=== PATIENT | male | born 1950 | race Caucasian/White ===

== ENCOUNTER 2022-10-06 17:07 | Observation (INO) | payer MEDICARE, OTHER ==
[2022-10-06] MEDS ORDERED: Ondansetron 4 MG Tab.DIS PO ONE (17:29)
[2022-10-06] MEDS ORDERED: HYDROmorphone 2 MG/ML Syringe IM ONE (17:29)
[2022-10-06 17:49] LABS: BASOPHILS ABSOLUTE AUTO 0.01 K/uL (0.02-0.10); BASOPHILS PERCENT AUTO 0.1 % (0.0-0.5); EOSINOPHILS ABSOLUTE AUTO 0.16 K/uL (0.04-0.40); EOSINOPHILS PERCENT AUTO 0.9 % (1.0-5.0); HEMOGLOBIN 17.2 g/dL (13.0-18.0); LYMPHOCYTES ABSOLUTE AUTO 2.74 K/uL (1.50-4.00); LYMPHOCYTES PERCENT AUTO 15.1 % (20.0-40.0); MEAN CORPUSCULAR HEMOGLOBIN 30.9 pg (27.0-32.0); MEAN CORPUSCULAR HGB CONC 35.1 g/dL (31.0-35.0); MEAN CORPUSCULAR VOLUME 88 fL (76-96); MEAN PLATELET VOLUME 10.4 fL (6.0-10.0); MONOCYTES ABSOLUTE AUTO 1.72 K/uL (0.20-0.80); MONOCYTES PERCENT AUTO 9.5 % (3.0-10.0); NEUTROPHILS ABSOLUTE AUTO 13.51 K/uL (2.00-7.50); NEUTROPHILS PERCENT AUTO 74.4 % (45.0-70.0); PLATELET COUNT,PLT 149 K/uL (150-400); RED BLOOD CELL COUNT 5.57 M/uL (4.50-6.50); RED CELL DISTRIBUTION WIDTH 14.7 % (11.0-16.0); WHITE BLOOD CELL COUNT,WBC 18.1 K/uL (4.0-11.0)
[2022-10-06 17:53] LABS: APPEARANCE,URINE CLEAR (CLEAR); BILIRUBIN,URINE NEGATIVE (NEGATIVE); COLOR,URINE YELLOW; GLUCOSE,URINE 250 mg/dL (NEGATIVE); KETONES,URINE NEGATIVE (NEGATIVE); LEUKOCYTE ESTERASE,URINE NEGATIVE (NEGATIVE); NITRITE,URINE NEGATIVE (NEGATIVE); OCCULT BLOOD,URINE NEGATIVE (NEGATIVE); PROTEIN,URINE 30 mg/dL (NEGATIVE)
[2022-10-06 18:01] LABS: AMORPHOUS SEDIMENT,URINE OCCASIONAL /HPF; RBC,URINE NOT SEEN /HPF; WBC,URINE NOT SEEN /HPF
[2022-10-06 18:06] LABS: ALBUMIN 3.7 g/dL (3.4-5.0); ANION GAP 16.5 mmol/L (5.0-15.0); BILIRUBIN TOTAL 1.8 mg/dL (0.0-1.0); BUN/CREATININE RATIO 14.2 (6-25); CALCIUM 8.8 mg/dL (8.5-10.1); CARBON DIOXIDE,CO2 24.5 mmol/L (21.0-32.0); CREATININE 1.34 mg/dL (0.70-1.30); EST CRCL DRUG DOSING (CG) 51.51 mL/min; PROTEIN TOTAL,TP 7.4 g/dL (6.4-8.2)
[2022-10-06] MEDS ORDERED: Ketorolac 30 MG/ML SDV IVPUSH ONE (18:17)
[2022-10-06] MEDS ORDERED: Sodium Chloride 0.9% 1,000 ML IV ONE (18:17)
[2022-10-06] MEDS ORDERED: Ketorolac 30 MG/ML SDV ONE (18:19)
[2022-10-06] MEDS ORDERED: Sodium Chloride 0.9% 10 ML Syringe FLUSH PRN (18:35)
[2022-10-06] MEDS ORDERED: Lactated Ringers 1,000 ML IV ONE (18:54)
[2022-10-06] MEDS ORDERED: Morphine 2 MG/ML SYRINGE ONE (18:59)
[2022-10-06] MEDS ORDERED: Morphine 2 MG/ML SYRINGE IVPUSH ONE (19:00)
[2022-10-06] MEDS ORDERED: Ondansetron 4 MG/2 ML SDV IV PRN (19:07)
[2022-10-06] MEDS: Morphine 2 MG/ML SYRINGE IVPUSH PRN ×3 (20:44→23:05)
[2022-10-06] MEDS: Lactated Ringers 1,000 ML IV SCH (20:52)
[2022-10-06] MEDS ORDERED: Morphine 4 MG/ML VIAL IVPUSH ONE (22:19)
[2022-10-06] MEDS: metFORMIN 500 MG Tab PO SCH (22:33)
[2022-10-06] MEDS ORDERED: fentaNYL 100 MCG/2 ML SDV IVPUSH SCH (23:30)
[2022-10-06] MEDS ORDERED: Labetalol 100 MG/20 ML MDV IVPUSH ONE (23:58)
[2022-10-07] MEDS: Diltiazem 120 MG Cap.CD PO SCH ×2 (00:19→07:51)
[2022-10-07] MEDS ORDERED: Diltiazem 120 MG Cap.CD PO ONE (02:04)
[2022-10-07] MEDS: fentaNYL 100 MCG/2 ML SDV IVPUSH SCH ×6 (02:13→11:10)
[2022-10-07] MEDS ORDERED: Metoprolol Succinate 50 MG Tab.ER PO ONE (03:10)
[2022-10-07] MEDS ORDERED: Morphine 4 MG/ML VIAL IVPUSH PRN (03:22)
[2022-10-07] MEDS: Morphine 4 MG/ML VIAL IVPUSH PRN ×2 (03:31→04:45)
[2022-10-07] MEDS: fentaNYL 100 MCG/2 ML SDV IVPUSH PRN ×2 (03:45→05:28)
[2022-10-07] MEDS: Lactated Ringers 1,000 ML IV SCH ×2 (04:30→11:48)
[2022-10-07] MEDS: metFORMIN 500 MG Tab PO SCH (07:51)
[2022-10-07] MEDS ORDERED: Tamsulosin 0.4 MG Cap.ER PO SCH (08:00)
[2022-10-07] MEDS ORDERED: Lisinopril 10 MG Tab PO SCH (08:00)
[2022-10-07 08:37] LABS: HEMATOCRIT 50.9 % (40.0-54.0); MEAN CORPUSCULAR HEMOGLOBIN 30.6 pg (27.0-32.0); MEAN CORPUSCULAR HGB CONC 35.8 g/dL (31.0-35.0); MEAN CORPUSCULAR VOLUME 86 fL (76-96); MEAN PLATELET VOLUME 11.4 fL (6.0-10.0); PLATELET COUNT,PLT 133 K/uL (150-400); RED BLOOD CELL COUNT 5.94 M/uL (4.50-6.50); RED CELL DISTRIBUTION WIDTH 14.9 % (11.0-16.0); WHITE BLOOD CELL COUNT,WBC 18.4 K/uL (4.0-11.0)
[2022-10-07 08:45] LABS: HEMOGLOBIN 18.2 g/dL (13.0-18.0)
[2022-10-07 08:51] LABS: ALBUMIN 3.7 g/dL (3.4-5.0); BILIRUBIN TOTAL 1.3 mg/dL (0.0-1.0)
[2022-10-07 09:48] LABS: BUN/CREATININE RATIO 18.3 (6-25); CALCIUM 8.7 mg/dL (8.5-10.1); CARBON DIOXIDE,CO2 21.6 mmol/L (21.0-32.0); CREATININE 1.53 mg/dL (0.70-1.30); EST CRCL DRUG DOSING (CG) 45.11 mL/min; PROTEIN TOTAL,TP 7.5 g/dL (6.4-8.2)
[2022-10-07 09:49] LABS: ANION GAP 17.8 mmol/L (5.0-15.0)
[2022-10-07 09:53] LABS: POTASSIUM,K 6.4 mmol/L (3.5-5.1)
[2022-10-07] MEDS ORDERED: Sodium Polystyrene Sulfonate 15 GM/60 ML Susp 60 ML Bot PO ONE (10:30)
[2022-10-07] MEDS ORDERED: fentaNYL 100 MCG/2 ML SDV IVPUSH PRN (10:36)
[2022-10-07 10:43] LABS: GIANT PLATELETS FEW
[2022-10-07] MEDS ORDERED: Ketorolac 30 MG/ML SDV IVPUSH ONE (10:43)
[2022-10-07] MEDS ORDERED: Simvastatin 20 MG Tab PO SCH (20:00)
== END 2022-10-07 12:32 ==
LOC: LB.ED 17:07 → LB.MS 19:15
PROVIDERS: ADMIT Physician Assistant; ATTEND Physician Assistant
DX: K85.90 Acute pancreatitis without necrosis or infection, unspecified (principal); Z79.899 Other long term (current) drug therapy; E11.9 Type 2 diabetes mellitus without complications
CPT/HCPCS: 36415; 74176; 80053; 81001; 83690; 85025; 93005; 96361; 96372; 96374; 96375; 96376; 99285-25; A9270-GY; G0378; J1170; J1885; J2270; J3010; J7030; J7120; Q0162

== ENCOUNTER 2022-12-09 19:40 | Emergency (ER) | payer MEDICARE, OTHER ==
[2022-12-09 20:14] LABS: BASE EXCESS VENOUS -0.3 mm/L (-2-3); BICARBONATE,VENOUS 24.5 mmol/L (23.0-28.0); PCO2 VENOUS 39.5 mm/Hg (41-51)
[2022-12-09 20:27] LABS: BASOPHILS ABSOLUTE AUTO 0.02 K/uL (0.02-0.10); BASOPHILS PERCENT AUTO 0.3 % (0.0-0.5); EOSINOPHILS ABSOLUTE AUTO 0.07 K/uL (0.04-0.40); EOSINOPHILS PERCENT AUTO 1.1 % (1.0-5.0); HEMATOCRIT 34.8 % (40.0-54.0); LYMPHOCYTES ABSOLUTE AUTO 1.81 K/uL (1.50-4.00); LYMPHOCYTES PERCENT AUTO 29.1 % (20.0-40.0); MEAN CORPUSCULAR HEMOGLOBIN 29.1 pg (27.0-32.0); MEAN CORPUSCULAR HGB CONC 34.5 g/dL (31.0-35.0); MEAN CORPUSCULAR VOLUME 84 fL (76-96); MEAN PLATELET VOLUME 11.1 fL (6.0-10.0); MONOCYTES ABSOLUTE AUTO 0.97 K/uL (0.20-0.80); MONOCYTES PERCENT AUTO 15.6 % (3.0-10.0); NEUTROPHILS ABSOLUTE AUTO 3.35 K/uL (2.00-7.50); NEUTROPHILS PERCENT AUTO 53.9 % (45.0-70.0); PLATELET COUNT,PLT 207 K/uL (150-400); RED BLOOD CELL COUNT 4.13 M/uL (4.50-6.50); RED CELL DISTRIBUTION WIDTH 13.8 % (11.0-16.0); WHITE BLOOD CELL COUNT,WBC 6.2 K/uL (4.0-11.0)
[2022-12-09 20:49] LABS: A/G RATIO 0.5 (0.8-2.0); ALBUMIN 2.3 g/dL (3.4-5.0); ANION GAP 16.6 mmol/L (5.0-15.0); BILIRUBIN TOTAL 0.6 mg/dL (0.0-1.0); BUN/CREATININE RATIO 15.8 (6-25); CALCIUM 8.9 mg/dL (8.5-10.1); CARBON DIOXIDE,CO2 23.1 mmol/L (21.0-32.0); CREATININE 1.01 mg/dL (0.70-1.30); EST CRCL DRUG DOSING (CG) 68.34 mL/min; POTASSIUM,K 3.7 mmol/L (3.5-5.1)
== END 2022-12-09 21:05 | disposition home or self-care (01) ==
LOC: LB.ED 19:40
DX: E87.1 Hypo-osmolality and hyponatremia (principal); E78.00 Pure hypercholesterolemia, unspecified; E11.9 Type 2 diabetes mellitus without complications; E66.9 Obesity, unspecified; Z68.34 Body mass index [BMI] 34.0-34.9, adult; Z79.82 Long term (current) use of aspirin; Z79.84 Long term (current) use of oral hypoglycemic drugs; Z79.899 Other long term (current) drug therapy
CPT/HCPCS: 36415; 80053; 82803; 85025; 93005; 99283